=== PATIENT | female | born 1995 | race Caucasian/White ===

== ENCOUNTER 2016-07-28 19:39 | Emergency (ER) | payer BC ==
[2016-07-28 19:55] VITALS: BP 100/73
--- NOTE | 2016-07-28 20:43 | UC ---
UC General HPI - HPI Summary HPI Summary: Patient is on an acne medication and is worried she is experiencing side effects , she is complaining of left eye pain, pressure above both eyes. She is alos having severe dysuria and has lesions on her perineum. denies fever. - History of Current Complaint Chief Complaint: UCGeneralIllness Stated Complaint: SINUSES Time Seen by Provider: 07/28/16 20:10 Hx Obtained From: Patient Onset/Duration: Sudden Onset, Lasting Days Timing: Constant Onset Severity: Moderate Current Severity: Moderate Associated Signs & Symptoms: Positive: Headache - Allergy/Home Medications Allergies/Adverse Reactions: Allergies Allergy/AdvReac Type Severity Reaction Status Date / Time No Known Allergies Allergy Verified 07/28/16 19:55 Home Medications: Home Medications Isotretinoin [Myorisan] 40 mg PO BID 07/28/16 [History Confirmed 07/28/16] PMH/Surg Hx/FS Hx/Imm Hx Previously Healthy: Yes Respiratory History Of: Reports: Asthma - Surgical History Surgical History: Yes Surgery Procedure, Year, and Place: RIGHT FOOT SURGERY 2009 (REMOVAL OF EXTRA BONE) - Family History Known Family History: Negative: Cardiac Disease, Hypertension - Social History Alcohol Use: None Substance Use Type: None Smoking Status (MU): Never Smoked Tobacco Review of Systems Constitutional: Negative Skin: Negative, Other - blisters on groin Eyes: Other - left eye pressure ENT: Negative Respiratory: Negative Cardiovascular: Negative Gastrointestinal: Negative Genitourinary: Dysuria Motor: Negative Neurovascular: Negative Musculoskeletal: Negative Neurological: Negative Psychological: Negative All Other Systems Reviewed And Are Negative: Yes Physical Exam Triage Information Reviewed: Yes Appearance: Well-Appearing, Well-Nourished, Pain Distress Vital Signs: Initial Vital Signs Temp 98.5 F 07/28/16 19:49 Pulse 111 07/28/16 19:49 Resp 16 07/28/16 19:49 BP 100/73 07/28/16 19:49 Pulse Ox 100 07/28/16 19:49 Vital Signs Reviewed: Yes Eye Exam: Normal Eyes: Positive: Conjunctiva Clear, Other: - fundoscopic exam was completed an normal ENT Exam: Normal ENT: Positive: Normal ENT inspection, Hearing grossly normal, Pharynx normal, TMs normal Dental Exam: Normal Neck exam: Normal Neck: Positive: Supple, Nontender, No Lymphadenopathy Respiratory Exam: Normal Respiratory: Positive: Chest non-tender, Lungs clear, Normal breath sounds Cardiovascular Exam: Normal Cardiovascular: Positive: RRR, No Murmur, Pulses Normal Abdominal Exam: Normal Abdomen Description: Positive: Nontender, No Organomegaly, Soft, Other: - pelvic exam: large amount of thick white discharge noted, fishy odor, no blood or lesion noted in the vaginal canal, cervix visible, beefy white, ulceration on the labia painful to touchm no blisters noted, Bowel Sounds: Positive: Present Musculoskeletal Exam: Normal Musculoskeletal: Positive: Strength Intact, ROM Intact, No Edema Neurological Exam: Normal Neurological: Positive: Alert, Muscle Tone Normal Psychological Exam: Normal Skin Exam: Normal Course/Dx - Course Course Of Treatment: hx obtained, exam performed, meds reviewed, ua fould smelling and thick , leuks, blood, pro, ketones and elevated spec gravity. and neg pevlic exam completed, small lucerations neted on labia, large amount of thick white discharge noted. no lesions noted on cervix, cultures obtained. medication given for yeast infection. Will follow up with result of cutures. Recommend follow up if eye pain persists. - Differential Dx - Multi-Symptom Provider Diagnoses: vulvovaginitis. ulcerations on the labia. dehydration. headaches Discharge - Discharge Plan Condition: Stable Disposition: HOME Prescriptions: Terconazole Vaginal [Terazol 7] 0.4 % VA DAILY #7 applic Patient Education Materials: Vulvovaginal Candidiasis (ED) Additional Instructions: 1. use the medication as prescribed 2. We will call with any positive results from your cultures, in the mean time, coconut oil will help relieve the irritation on the labia. 3. Increase your fluid intake drastically 4. If eye pain persists over the next few days, please follow up with your eye doctor.
== END 2016-07-28 21:29 | disposition home or self-care (01) ==
LOC: UCCORT 19:39
DX: N76.0 Acute vaginitis (principal); N76.6 Ulceration of vulva; E86.0 Dehydration; R51 Headache; Z32.02 Encounter for pregnancy test, result negative
CPT/HCPCS: 81025; 87086; 87480; 87491; 87510; 87529; 87591; 87661; 99212; G0463

== ENCOUNTER 2018-05-24 16:46 | Emergency (ER) | payer BC ==
[2018-05-24 17:33] VITALS: BP 113/65
--- NOTE | 2018-05-24 19:23 | UC ---
UC General HPI - HPI Summary HPI Summary: pt presents with multiple complaints including concern that she still has a kidney stone, concern over her lymphadenopathy to her axilla bilaterally, rash to her hands, fatigue, concern for Thalassemia. pt states that Thalassemia is a known disease in her family. she complains of mild left flank pain. she denies any dysuria or hematuria. she denies any dizziness or syncope. she denies any fever, chills, n/v. [place] 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 - History of Current Complaint Chief Complaint: UCGeneralIllness Stated Complaint: SKIN CONCERN,HEADACHE,SORE THROAT Time Seen by Provider: 05/24/18 18:22 Hx Obtained From: Patient Hx Last Menstrual Period: 05/06/18 Onset Severity: Mild Current Severity: Mild Pain Intensity: 1 - Allergy/Home Medications Allergies/Adverse Reactions: Allergies Allergy/AdvReac Type Severity Reaction Status Date / Time No Known Allergies Allergy Verified 05/24/18 17:29 Home Medications: Home Medications Ibuprofen TAB* [Motrin TAB* 400 MG] 400 mg PO Q6H PRN 05/24/18 [History Confirmed 05/24/18] PMH/Surg Hx/FS Hx/Imm Hx Previously Healthy: Yes GI/ History: Kidney Stones - Surgical History Surgical History: Yes Surgery Procedure, Year, and Place: RIGHT FOOT SURGERY 2009 (REMOVAL OF EXTRA BONE). wisdom teeth extraction - Family History Known Family History: Negative: Cardiac Disease, Hypertension - Social History Alcohol Use: None Substance Use Type: None Smoking Status (MU): Never Smoked Tobacco Review of Systems All Other Systems Reviewed And Are Negative: No Constitutional: Positive: Negative Skin: Positive: Rash - to her right hand Eyes: Positive: Negative ENT: Positive: Negative Respiratory: Positive: Negative Cardiovascular: Positive: Negative Gastrointestinal: Positive: Negative Genitourinary: Positive: Other - flank pain Motor: Positive: Negative Neurovascular: Positive: Negative Musculoskeletal: Positive: Negative Neurological: Positive: Negative Psychological: Positive: Negative Is Patient Immunocompromised?: No Physical Exam Triage Information Reviewed: Yes Appearance: Well-Appearing, No Pain Distress, Well-Nourished Vital Signs: Initial Vital Signs Temp 98.3 F 05/24/18 17:20 Pulse 84 05/24/18 17:20 Resp 16 12/28/18 17:20 BP 113/65 05/24/18 17:20 Pulse Ox 99 05/24/18 17:20 Vital Signs Reviewed: Yes Eye Exam: Normal ENT Exam: Normal Neck exam: Normal Respiratory: Positive: Chest non-tender, Lungs clear, Normal breath sounds, No respiratory distress Cardiovascular: Positive: RRR, No Murmur, Pulses Normal, Brisk Capillary Refill Abdomen Description: Positive: Nontender, Soft Bowel Sounds: Positive: Present Musculoskeletal Exam: Normal Neurological Exam: Normal Psychological Exam: Normal Skin: Positive: Other - plaque like rash to right hand. no swelling, tenderness or open wounds. skin thickened. Course/Dx - Course Course Of Treatment: pt most importantly wants to know if she has any further issues with her kidney stones. her exam is benign. Her urine shows no blood or evidence of infection. I had a lengthy discussion with her and her mother regarding fatigue and her concern. I discussed the importance of blood work and establishing care with a primary care physician. - Diagnoses Provider Diagnosis: Well adult exam, Rash Discharge - Sign-Out/Discharge Documenting (check all that apply): Patient Departure All imaging exams completed and their final reports reviewed: No Studies - Discharge Plan Condition: Stable Disposition: HOME Patient Education Materials: Acute Rash (ED), Fatigue (ED) Referrals: Lisa Jc MD [Primary Care Provider] - [facility] [Provider Group] Additional Instructions: establish care with a primary care physician. Please address all issues we discussed with this new primary care physician. return if worse or any new symptoms. - Billing Disposition and Condition Condition: STABLE Disposition: Home
== END 2018-05-24 19:38 | disposition home or self-care (01) ==
LOC: UCCORT 16:46
DX: Z03.89 Encounter for observation for other suspected diseases and conditions ruled out (principal); R21 Rash and other nonspecific skin eruption
CPT/HCPCS: 81003; 99211; G0463